=== PATIENT | female | born 1990 | race Caucasian/White ===

== ENCOUNTER 2020-02-22 21:22 | Emergency (ER) | payer MEDICAID, SELFPAY ==
--- NOTE | 2020-02-22 | CT_ITS ---
EXAMINATION: CT ABDOMEN AND PELVIS WITHOUT CONTRAST CLINICAL INFORMATION: Bilateral flank pain. COMPARISON: None TECHNIQUE: Multidetector volumetric imaging was performed from the superior aspect of the liver through the pubic symphysis. Sagittal and coronal reformatted images were obtained on the technologist's workstation. This CT examination was performed using dose optimization techniques as appropriate, variously including the following: *Automated exposure control *Adjustment of mA and/or kV according to patient size (this includes techniques or standardized protocols for targeted exams where dose is matched to indication/reason for exam; i.e. extremities or head) *Use of iterative reconstruction technique DLP: 640 mGy-cm FINDINGS: LUNG BASES: The visualized lung bases are unremarkable. LIVER, GALLBLADDER, AND BILIARY TREE: The liver is normal in size, shape, and attenuation. No focal hepatic lesion or biliary ductal dilatation is present. The gallbladder is unremarkable with no evidence of radiopaque gallstones, gallbladder wall thickening, or obvious pericholecystic inflammatory changes. PANCREAS: Unremarkable. SPLEEN: Unremarkable. ADRENAL GLANDS: Unremarkable. KIDNEYS AND URETERS: The kidneys are normal in size, shape, and attenuation. Mild fullness of the right collecting system. No obstructing calculus is seen. There are multiple nonobstructing bilateral renal calculi. On the right there are at least 4 calculi at the mid to lower pole measuring up to 0.3 cm, 13.5 cm from the posterior axillary line. There are 3 left lower pole renal calculi measuring up to 0.4 cm, 9.5 cm from the posterior axillary line. BLADDER: Prominent calcifications are seen in the pelvis. A dominant calculus may be within the bladder lumen, measuring 1.2 cm. No bladder wall thickening. GASTROINTESTINAL TRACT: The stomach is unremarkable. Normal caliber small bowel. No obstruction. No colonic wall thickening or acute inflammatory change. No free air or free fluid. The appendix is not visualized. ABDOMINAL WALL: No significant hernia is appreciated. LYMPH NODES: Normal. VASCULAR: Unremarkable. PELVIC VISCERA: Anteverted uterus. No adnexal mass. Multiple phleboliths in the pelvis. OSSEOUS STRUCTURES: No acute or suspicious osseous abnormality. IMPRESSION: Mild fullness of the right renal collecting system is nonspecific. No obstructing calculus is seen. There are bilateral nonobstructing renal calculi. Multiple pelvic phleboliths. There is a dominant calcification in the pelvis which may be within the bladder lumen.
[2020-02-22 21:24] VITALS: BP 120/69; PULSE 69; RESP 18; TEMP 36.9; O2SAT 100; BMI 24.1
[2020-02-22 22:20] LABS: Glucose Urine UA NEG (NEG); Leukocyte Esterase Urine TRACE (NEG); Nitrite Urine NEG (NEG); Specific Gravity - Urine >= 1.030 (1.005-1.025); Urine Blood 3+ (NEG); Urine Ketones NEG (NEG); Urine Protein 1+ MG/DL (NEG-TRACE)
[2020-02-22 22:21] LABS: Color Urine DARK YELLOW
[2020-02-22 22:22] LABS: Appearance Urine HAZY
[2020-02-22 22:36] LABS: Bacteria Urine TRACE /LPF; Squamous Epithelial Cell Urine 2+ /LPF
[2020-02-22 22:37] LABS: Calcium Oxalate Crystals Urine 1+ /LPF
[2020-02-22 22:41] LABS: UPreg QC Valid YES; Urine Pregnancy NEGATIVE (NEGATIVE)
[2020-02-22 22:58] LABS: MANUAL DIFF FLAG NO
[2020-02-22 23:00] LABS: Basophils Percent Auto 0.4 % (0-2); Eosinophils Absolute Auto 0.4 X10*3/uL (0.0-0.4); Eosinophils Percent Auto 7.7 % (0-4); Hematocrit 39.3 % (37-47); Hemoglobin 12.7 g/dl (12.0-16.0); Imm Gran Abs Auto 0.01 X10*3/uL (0.00-0.03); Imm Gran Pct Auto 0.2 % (0.0-0.4); Lymphocytes Absolute Auto 1.9 X10*3/uL (1.2-4.9); Lymphocytes Percent Auto 39.4 % (20-40); Mean Corpuscular HGB Conc 32.3 g/dl (31.0-35.0); Mean Corpuscular Hemoglobin 29.5 pg (27.0-33.0); Mean Corpuscular Volume 91.2 fL (80-98); Mean Platelet Volume 9.3 fL (9.4-12.3); Monocytes Absolute Auto 0.4 X10*3/uL (0.1-1.2); Monocytes Percent Auto 7.9 % (2-11); Neutrophils Absolute Auto 2.2 X10*3/uL (2.0-8.3); Neutrophils Percent Auto 44.4 % (45-73); Platelet Count 235 X10*3/uL (160-400); Red Blood Count 4.31 X10*6/uL (4.20-5.50); Red Cell Distribution Width 12.6 % (11.0-16.0); White Blood Count 4.9 X10*3/uL (4.8-10.8)
--- NOTE | 2020-02-22 23:02 | ED_ITS ---
HPI - Abdominal Pain General Chief Complaint: General Medical Stated Complaint: UTI Time Seen by Provider: 02/22/20 22:24 Source: patient Mode of arrival: ambulatory Limitations: no limitations History of Present Illness HPI narrative: 30-year-old female presents with bilateral flank pain, suprapubic pain, and abdominal pressure. States that she was treated for UTI approximately 3 months ago but did not complete the entire course of antibiotics. She feels like this could be a urinary tract infection. Does state that the symptoms resolved after taking some of the antibiotics that were prescribed to her. At this time she is visibly uncomfortable, appears to be under the influence of marijuana. She denies fevers, chills, chest pain or pressure, palpitations, shortness of breath, urinary frequency, edema, vaginal discharge, dyspareunia, and edema. MD elicited complaint: abdominal pain and flank pain (Bilateral) Pertinent past history: past UTI Onset (ago): day(s) (Several days) Pain Consistency: constant Location: L flank, R flank, suprapubic and pelvis Severity: moderate Quality: stabbing, aching and fullness Exacerbating factors: movement Relieving factors: nothing Associated symptoms: denies other symptoms Treatments prior to arrival: NSAIDs Related Data Previous Rx's Medication Instructions Recorded prednisone 20 mg PO DAILY 5 Days #5 tab 02/23/20 tamsulosin [Flomax] 0.4 mg PO DAILY 14 Days #14 cap 02/23/20 tramadol 50 mg PO Q8H PRN #14 tab 02/23/20 Allergies Allergy/AdvReac Type Severity Reaction Status Date / Time No Known Allergies Allergy Unverified 01/31/20 19:53 Review of Systems Review of Systems Constitutional: No Weight loss, No Fever, No Chills, No Night Sweats, No Fatigue, No Malaise ENT/Mouth: No Hearing loss, No Ear Pain, No Nasal Congestion, No Sinus Pain, No Hoarseness, No sore throat, No Rhinorrhea, No Swallowing Difficulty Eyes: No Eye Pain, No Swelling, No Redness, No Foreign Body, No Discharge, No Vision Changes Cardiovascular: No Chest Pain, No SOB, No Dyspnea on Exertion, No Orthopnea, No Edema, No Palpitations Respiratory: No Cough, No Sputum, No Wheezing, No Smoke Exposure, No Dyspnea Gastrointestinal: positive abdominal Pain, no distention, nausea, vomiting, diarrhea, No Hematochezia, No Melena Genitourinary: positive flank pain and urgency, No Urinary Flow Changes, No Hesitancy Musculoskeletal: No joint pain, No Myalgias, No Joint Swelling Skin: No Skin Lesions, No rash Neuro: No Weakness, No Numbness, No Paresthesias, No Loss of Consciousness, No Dizziness, No Headache Psych: No Anxiety/Panic, No Depression, No SI/HI/AH/VH, No Social Issues, Heme/Lymph: No Bruising, No Bleeding,No Lymphadenopathy Endocrine: No Polyuria, No Polydipsia, No Temperature Intolerance Physical Exam Vital Signs and I&O and Narrative: Vital Signs and I&O: Vital Signs Temp 97.8 F 02/22/20 23:55 Pulse 56 02/23/20 01:25 Resp 16 02/23/20 01:25 BP 119/78 02/23/20 01:25 Pulse Ox 95 02/23/20 01:25 Intake & Output 02/22/20 02/22/20 02/23/20 06:59 18:59 06:59 Intake Total 1000.00 / 1000.00 Balance 1000.00 / 1000.00 Weight 76.374 kg Intake: Intake, IV Amoun t 1000.00 / 1000.00 0.9 % Sodium C hloride 1,000 ml 1000.00 / 1000.00 @ 999 mls/hr I VCONT .Q1H1M [facility] Rx#:[id number] Body Mass Index 24.1 Appearance: Alert. Oriented X3. No acute distress. Eyes: Pupils equal, round and reactive to light. ENT: Pharynx normal. Neck: Normal inspection. Neck supple. CVS: Normal heart rate and rhythm. Pulses normal. Respiratory: No respiratory distress. Breath sounds normal. Abdomen: Soft, tender to palpation to right lower, left lower, umbilical and suprapubic, bilateral CVA tenderness Skin: Skin warm and dry. Normal skin color. Normal skin turgor. Extremities: No lower extremity edema. No lower extremity edema. Neuro: Oriented X 3. No motor deficit. No sensory deficit. Course Course Course Narrative: 30-year-old female presents with several days of bilateral flank pain, suprapubic pain, and abdominal pain. Has had a UTI in the past and did not complete the entire course of antibiotics. At this time we will order CBC, Chem 7, lactic acid, cultures, and CT scan of abdomen and pelvis. Lab values are unremarkable, lactic acid is negative, CT scan of the abdomen and pelvis show positive for bilateral renal colic and pelvic phleboliths. We will have patient follow-up with urology for bilateral renal stones, give Flomax, prednisone, and tramadol for pain management. Patient does understand that she must follow-up with precipitator for phleboliths. Patient verbalized understanding of and agrees to plan of care to discharge home. MDM - Abdominal Pain Differential Diagnosis Differential diagnosis: Likely abdominal pain, acute appendicitis, calculus of kidney, diverticulitis, endometriosis, gastroenteritis, mesenteric ischemia, ovarian cyst, renal colic and small bowel obstruction Medical Records Attestation: I reviewed the patient's medical records. Lab Data Attestation: I reviewed the patient's lab results. Result diagrams: 02/22/20 22:52 02/22/20 22:52 Labs: Lab Results 02/22/20 02/22/20 02/22/20 Range/Units 21:59 22:52 22:52 WBC 4.9 (4.8-10.8) X10*3/uL RBC 4.31 (4.20-5.50) X10*6/uL Hgb 12.7 (12.0-16.0) g/dl Hct 39.3 (37-47) % MCV 91.2 (80-98) fL MCH 29.5 (27.0-33.0) pg MCHC 32.3 (31.0-35.0) g/dl RDW 12.6 (11.0-16.0) % Plt Count 235 (160-400) X10*3/uL MPV 9.3 L (9.4-12.3) fL Immature Gran % (Auto) 0.2 (0.0-0.4) % Neut % (Auto) 44.4 L (45-73) % Lymph % (Auto) 39.4 (20-40) % Stephens % (Auto) 7.9 (2-11) % Eos % (Auto) 7.7 H (0-4) % Baso % (Auto) 0.4 (0-2) % Lymph # (Auto) 1.9 (1.2-4.9) X10*3/uL Stephens # (Auto) 0.4 (0.1-1.2) X10*3/uL Eos # (Auto) 0.4 (0.0-0.4) X10*3/uL Baso # (Auto) 0.0 (0.0-0.2) X10*3/uL Abs Immat Gran (auto) 0.01 (0.00-0.03) X10*3/uL Absolute Neuts (auto) 2.2 (2.0-8.3) X10*3/uL Absolute Nucleated RBC 0.000 (0.0-0.012) X10*3/uL Nucleated RBC % (auto) 0.0 (0.0-0.2) /100WBC Sodium 137 (135-145) mmol/L Potassium 4.2 (3.3-5.1) mmol/l Chloride 104 (96-108) mmol/L Carbon Dioxide 24 (22-29) mmol/L Anion Gap 13 (12-20) BUN 12 (9-16) mg/dL Creatinine 0.70 (0.5-1.4) mg/dL Estim Creat Clear Calc 129.4 Estimated GFR > 60 Random Glucose 109 (60-115) mg/dL Lactic Acid (0.5-2.0) mmol/L Calcium 9.3 (8.4-10.2) mg/dL Urine Color DARK YELLOW Urine Appearance HAZY Urine pH 6.0 (5.0-8.0) Ur Specific Simms >= 1.030 H (1.005-1.025) Urine Protein 1+ H (NEG-TRACE) MG/DL Urine Glucose (UA) NEG (NEG) MG/DL Urine Ketones NEG (NEG) MG/DL Urine Blood 3+ H (NEG) Urine Nitrite NEG (NEG) Ur Leukocyte Esterase TRACE H (NEG) Urine RBC 15-29 H (0) /HPF Urine WBC 5-9 H (0-4) /HPF Ur Squamous Epith Cells 2+ /LPF Calcium Oxalate Crystal 1+ /LPF Urine Bacteria TRACE /LPF Urine Test NEGATIVE (NEGATIVE) 02/22/20 Range/Units 22:52 WBC (4.8-10.8) X10*3/uL RBC (4.20-5.50) X10*6/uL Hgb (12.0-16.0) g/dl Hct (37-47) % MCV (80-98) fL MCH (27.0-33.0) pg MCHC (31.0-35.0) g/dl RDW (11.0-16.0) % Plt Count (160-400) X10*3/uL MPV (9.4-12.3) fL Immature Gran % (Auto) (0.0-0.4) % Neut % (Auto) (45-73) % Lymph % (Auto) (20-40) % Stephens % (Auto) (2-11) % Eos % (Auto) (0-4) % Baso % (Auto) (0-2) % Lymph # (Auto) (1.2-4.9) X10*3/uL Stephens # (Auto) (0.1-1.2) X10*3/uL Eos # (Auto) (0.0-0.4) X10*3/uL Baso # (Auto) (0.0-0.2) X10*3/uL Abs Immat Gran (auto) (0.00-0.03) X10*3/uL Absolute Neuts (auto) (2.0-8.3) X10*3/uL Absolute Nucleated RBC (0.0-0.012) X10*3/uL Nucleated RBC % (auto) (0.0-0.2) /100WBC Sodium (135-145) mmol/L Potassium (3.3-5.1) mmol/l Chloride (96-108) mmol/L Carbon Dioxide (22-29) mmol/L Anion Gap (12-20) BUN (9-16) mg/dL Creatinine (0.5-1.4) mg/dL Estim Creat Clear Calc Estimated GFR Random Glucose (60-115) mg/dL Lactic Acid 1.0 (0.5-2.0) mmol/L Calcium (8.4-10.2) mg/dL Urine Color Urine Appearance Urine pH (5.0-8.0) Ur Specific Simms (1.005-1.025) Urine Protein (NEG-TRACE) MG/DL Urine Glucose (UA) (NEG) MG/DL Urine Ketones (NEG) MG/DL Urine Blood (NEG) Urine Nitrite (NEG) Ur Leukocyte Esterase (NEG) Urine RBC (0) /HPF Urine WBC (0-4) /HPF Ur Squamous Epith Cells /LPF Calcium Oxalate Crystal /LPF Urine Bacteria /LPF Urine Test (NEGATIVE) Imaging Data CT scan - abdomen: Attestation: I personally reviewed and interpreted this imaging study as follows: Radiologist's impression: LUNG BASES: The visualized lung bases are unremarkable. LIVER, GALLBLADDER, AND BILIARY TREE: The liver is normal in size, shape, and attenuation. No focal hepatic lesion or biliary ductal dilatation is present. The gallbladder is unremarkable with no evidence of radiopaque gallstones, gallbladder wall thickening, or obvious pericholecystic inflammatory changes. PANCREAS: Unremarkable. SPLEEN: Unremarkable. ADRENAL GLANDS: Unremarkable. KIDNEYS AND URETERS: The kidneys are normal in size, shape, and attenuation. Mild fullness of the right collecting system. No obstructing calculus is seen. There are multiple nonobstructing bilateral renal calculi. On the right there are at least 4 calculi at the mid to lower pole measuring up to 0.3 cm, 13.5 cm from the posterior axillary line. There are 3 left lower pole renal calculi measuring up to 0.4 cm, 9.5 cm from the posterior axillary line. BLADDER: Prominent calcifications are seen in the pelvis. A dominant calculus may be within the bladder lumen, measuring 1.2 cm. No bladder wall thickening. GASTROINTESTINAL TRACT: The stomach is unremarkable. Normal caliber small bowel. No obstruction. No colonic wall thickening or acute inflammatory change. No free air or free fluid. The appendix is not visualized. ABDOMINAL WALL: No significant hernia is appreciated. LYMPH NODES: Normal. VASCULAR: Unremarkable. PELVIC VISCERA: Anteverted uterus. No adnexal mass. Multiple phleboliths in the pelvis. OSSEOUS STRUCTURES: No acute or suspicious osseous abnormality. IMPRESSION: Mild fullness of the right renal collecting system is nonspecific. No obstructing calculus is seen. There are bilateral nonobstructing renal calculi. Multiple pelvic phleboliths. There is a dominant calcification in the pelvis which may be within the bladder lumen. Discharge Plan Discharge Clinical Impression: Bilateral renal colic Patient Disposition: Home, Self-Care Instructions: Renal Colic (ED) Additional Instructions: you were evaluated for abdominal pain. CT scan of the abdomen shows bilateral renal colic, which is kidney stones in both kidneys. Please take prednisone, Flomax, and tramadol as directed. You must follow-up with urology. Please call on Tuesday and make an appointment for evaluation. If you cannot pass urine please return to the emergency department immediately. Thank you for choosing this emergency department for evaluation. Please follow-up with primary care physician as needed. Return to the emergency department for any new, concerning, or worsening symptoms. Prescriptions: New tamsulosin [Flomax] 0.4 mg capsule 0.4 mg PO DAILY 14 Days Qty: 14 RF: 0 tramadol 50 mg tablet 50 mg PO Q8H PRN (Reason: pain) Qty: 14 RF: 0 prednisone 20 mg tablet 20 mg PO DAILY 5 Days Qty: 5 RF: 0 Referrals: Maykel Ibrahim MD [Physician] - 2 days ( bilateral renal stones) Interventions: ED Discharge Assessment Last Done: 02/23/20 01:38 Discharge Date/Time: 02/23/20 01:39 [facility] Past Medical History Attestation statement: The following information was validated with the patient. Social History Social History Smoking Status: Never smoker Use of substances other than those prescribed or required for medical reasons: No Substance Use Type: Former Substance User Advance Directives: No Advance Directives Information Provided: Yes
--- NOTE | 2020-02-22 23:07 | PC.NURSE ---
Per pt, diagnosed with a UTI 3 months ago, was treated with IV ABX and provided with an RX. Pt reports poor compliance with RX. Pt reports persistent dysuria, reports a hx of UTIs and kidney problems. Pt also reporting bilat lower back pain, 11/22. Awaiting MD patiño.
--- NOTE | 2020-02-22 23:11 | PC.NURSE ---
Off to CT on hospital bed.
[2020-02-22 23:21] LABS: Anion Gap 13 (12-20); Blood Urea Nitrogen 12 mg/dL (9-16); Calcium 9.3 mg/dL (8.4-10.2); Carbon Dioxide 24 mmol/L (22-29); Chloride 104 mmol/L (96-108); Creatinine Clr Calc Pharmacy 129.4; Estimated Glomerular Filt Rate > 60; Glucose Random 109 mg/dL (60-115); Potassium 4.2 mmol/l (3.3-5.1); Sodium 137 mmol/L (135-145)
[2020-02-22] MEDS: 0.9 % Sodium Chloride 1,000 ML 999 ML IVCONT (23:46)
[2020-02-22] MEDS: Ketorolac Tromethamine 30 MG/ML VIAL IV (23:47)
[2020-02-22] MEDS: ondansetron HCL 4 MG/2 ML VIAL IVPUSH (23:47)
[2020-02-22 23:55] VITALS: BP 104/63; PULSE 50; RESP 12; TEMP 36.6; O2SAT 99
[2020-02-23] MEDS: Tamsulosin HCL 0.4 MG CAPSULE PO (01:24)
[2020-02-23] MEDS: predniSONE 20 MG TABLET PO (01:24)
[2020-02-23 01:25] VITALS: BP 119/78; PULSE 56; RESP 16; O2SAT 95
== END 2020-02-23 01:39 | disposition home or self-care (01) ==
PROVIDERS: Nurse Practitioner Family; Emergency Provider Emergency Medicine
DX: N23 Unspecified renal colic (principal); Z79.899 Other long term (current) drug therapy
CPT/HCPCS: 36415; 74176; 80048; 81001; 81025; 83605; 85025; 87040; 87086; 96361; 96374; 96375; 99284; J1885; J2405

== ENCOUNTER 2020-02-27 17:39 | Emergency (ER) | payer MEDICAID, SELFPAY ==
[2020-02-27 18:29] VITALS: BP 126/73; PULSE 76; RESP 16; TEMP 37.1; O2SAT 97; BMI 24.5
--- NOTE | 2020-02-27 18:36 | ED_ITS ---
HPI - Dental/Oral General Chief complaint: Dental/Oral Stated complaint: DENTAL PAIN Time Seen by Provider: 02/27/20 18:36 Source: patient Mode of arrival: ambulatory Limitations: no limitations History of Present Illness MD Complaint: tooth pain Teeth map: 1. EXTENSIVE DECAY ESSENTIALLY ABSENT TOOTH. SOME REACTIVE SWELLING TO THE CHEEK HOWEVER NO LOCALIZED ABSCESS. Onset (ago): day(s) (2 DAYS ) Duration: constant Severity: moderate Severity scale (1-10): 5 Context: history of dental caries and poor dental care Related Data Previous Rx's Medication Instructions Recorded prednisone 20 mg PO DAILY 5 Days #5 tab 02/23/20 tamsulosin [Flomax] 0.4 mg PO DAILY 14 Days #14 cap 02/23/20 tramadol 50 mg PO Q8H PRN #14 tab 02/23/20 ibuprofen 800 mg PO Q8H PRN #30 tab 02/27/20 penicillin V potassium 500 mg PO TID #28 tab 02/27/20 Allergies Allergy/AdvReac Type Severity Reaction Status Date / Time No Known Allergies Allergy Unverified 01/31/20 19:53 Review of Systems Review of Systems: Constitutional: No Weight loss, No Fever, No Chills, No Night Sweats, No Fatigue, No Malaise ENT/Mouth: No Hearing loss, No Ear Pain, No Nasal Congestion, No Sinus Pain, No Hoarseness, No sore throat, No Rhinorrhea, No Swallowing Difficulty Eyes: No Eye + left side dental pain/ Swelling, No Redness, No Foreign Body, No Discharge, No Vision Changes Cardiovascular: No Chest Pain, No SOB, No Dyspnea on Exertion, No Orthopnea, No Edema, No Palpitations Respiratory: No Cough, No Sputum, No Wheezing, No Smoke Exposure, No Dyspnea Gastrointestinal: No Nausea, No Vomiting, No Diarrhea, No Constipation, No abdominal Pain, No Hematochezia, No Melena Musculoskeletal: No joint pain, No Myalgias, No Joint Swelling Skin: No Skin Lesions, No rash Neuro: No Dizziness, No Headache Psych: No Anxiety/Panic, No Depression, No SI/HI/AH/VH, No Social Issues, Heme/Lymph: No Bruising, No Bleeding,No Lymphadenopathy Endocrine: No Polyuria, No Polydipsia, No Temperature Intolerance PMFSH Past Medical History Attestation statement: The following information was validated with the patient. Medical History (Updated 02/27/20 @ 18:36 by Onel Russ NP) No known health problems No known health problems Social History Social History Smoking Status: Current every day smoker Use of substances other than those prescribed or required for medical reasons: Yes Substance Use Type: Heroin Substance Use Frequency: Occasionally Last Used Substance: Hours (ago) Any prior treatment program specific to substance use: Yes Advance Directives: No Advance Directives Information Provided: No Physical Exam Vital Signs: Vital Signs: Vital Signs Temp Pulse Resp BP Pulse Ox 02/27/20 18:29 98.7 F 76 16 126/73 97 Body Mass Index 24.5 Const: General: cooperative and healthy appearing; No acute distress or intoxicated appearing Nutritional Appearance: average body habitus Orientation/consciousness: patient oriented x3 HENMT: Head: Yes normal to inspection Ears: hearing grossly normal bilaterally Teeth image: 1. Extensive localized decay essentially absent teeth. Eyes: General: appearance normal, both eyes and all related structures Visu al Mack: normal visual mack by confrontation Neck: Neck: Yes normal visual inspection and No tender Thyroid: Thyroid normal Chest: Chest palpation & inspection: normal inspection of the chest Resp: Effort & Inspection: normal respiratory effort Cardio: Jugular venous distension: no JVD : General: Yes no CVA tenderness Back/Spine/Pelvis: Back: no CVA tenderness Skin: General skin exam: no rashes or lesions noted Neuro: General: patient oriented x3 Discharge Plan Discharge Clinical Impression: Dental caries Patient Disposition: Home, Self-Care Instructions: Toothache (ED) Prescriptions: New penicillin V potassium 500 mg tablet 500 mg PO TID Qty: 28 RF: 0 ibuprofen 800 mg tablet 800 mg PO Q8H PRN (Reason: pain) Qty: 30 RF: 0 No Action tamsulosin [Flomax] 0.4 mg capsule 0.4 mg PO DAILY 14 Days Qty: 14 RF: 0 tramadol 50 mg tablet 50 mg PO Q8H PRN (Reason: pain) Qty: 14 RF: 0 prednisone 20 mg tablet 20 mg PO DAILY 5 Days Qty: 5 RF: 0 Referrals: Physician,None [Primary Care Provider] - 2 days ( dental) Interventions: ED Discharge Assessment Last Done: 02/27/20 19:15 Discharge Date/Time: 02/27/20 19:16
[2020-02-27] MEDS: Penicillin V Potassium 250 MG TABLET 500 MG PO (19:12)
[2020-02-27] MEDS: Ibuprofen 800 MG TABLET PO (19:13)
== END 2020-02-27 19:16 | disposition home or self-care (01) ==
PROVIDERS: Emergency Provider Internal Medicine
DX: K02.9 Dental caries, unspecified (principal)
CPT/HCPCS: 99283